=== PATIENT | male | born 1990 | race Caucasian/White ===

== ENCOUNTER 2016-06-26 00:13 | Emergency (ER) | payer BC, OTHER ==
[~2016-06-26] VITALS: Ht 167.6 cm; Wt 63.5 kg
[2016-06-26 00:20] VITALS: Ht 167.6 cm; Wt 63.5 kg
[2016-06-26] MEDS ORDERED: LIDOCAINE 2% (MDV) 20 ML INJ INJ ONE (03:00)
[2016-06-26] MEDS ORDERED: HYDR-906 PO (03:29)
[2016-06-26] MEDS ORDERED: IBUP-1542 PO (03:29)
--- NOTE | 2016-06-26 03:31 | ERD ---
ER Documentation Chief Complaint Date/Time DATE: 06/26/16 TIME: 03:30 Chief Complaint fell while skiing and has laceration on left side of forehead, no LOC ROS All systems reviewed and are negative except as per history of present illness. Medications Home Meds Active Scripts Ibuprofen* (Motrin*) 600 Mg Tab, 600 MG PO Q6, #30 TAB Prov:ORION PATTERSON 06/26/16 Hydrocodone/Acetaminophen ([place] 5-325 Tablet) 1 Each Tablet, 1 TAB PO Q6H Y for PAIN, #10 TAB Prov:ORION PATTERSON C 06/26/16 Allergies Allergies: Coded Allergies: No Known Allergy (Unverified , 06/26/16) PMhx/Soc Hx Substance Use: No Hx Tobacco Use: Yes Smoking Status: Light tobacco smoker Physical Exam Vitals Vital Signs Date Time Temp Pulse Resp B/P Pulse Ox O2 Delivery O2 Flow Rate FiO2 06/26/16 00:20 99.7 118 18 126/84 99 Physical Exam Const: [] Head: Atraumatic Eyes: Normal Conjunctiva ENT: Normal External Ears, Nose and Mouth. Neck: Full range of motion..~ No meningismus. Resp: Clear to auscultation bilaterally Cardio: Regular rate and rhythm, no murmurs Abd: Soft, non tender, non distended. Normal bowel sounds Skin: No petechiae or rashes Back: No midline or flank tenderness Ext: No cyanosis, or edema Neur: Awake and alert Psych: Normal Mood and Affect Results 24 hrs Current Medications Medications (Trade) Dose Ordered Sig/Erica Route PRN Reason Start Time Stop Time Status Last Admin Dose Admin Lidocaine (Xylocaine 2% (Mdv) 20 ml) 20 ml ONCE ONCE INJ 06/26/16 03:00 06/26/16 03:01 DC Procedures/MDM Laceration Repair by me: Anesthesia: 1% lidocaine locally Location: left eyebrow Tendon/Joint/Nerves: No injury Foreign body: None detected after copious irrigation and exploration Technique: 4 5'0 Simple Interrupted Sutures Complexity: No subcutaneous sutures/mucosal repair/ edge excision Post Closure Length: 3 cm Patient's bleeding was easily controlled in the department and there is no indication of anemia. No evidence of compartment syndrome, neurologic injury, vascular injury, open joint, tendon laceration, or foreign body. Patient is appropriate for outpatient follow up. 48 hour wound check. Scar minimization instructions given. Departure Diagnosis: Primary Impression: Laceration Condition: Stable Patient Instructions: Laceration, Face (Suture Or Tape) Additional Instructions: Return to this facility in 2 DAYS for a follow-up exam.Return sooner if your condition worsens. ORION PATTERSON Jun 26, 2016 03:31
[2016-06-26 03:38] VITALS: BP 134/72; PULSE 98; RESP 18; TEMP 98.9
== END 2016-06-26 03:38 | disposition home or self-care (01) ==
LOC: FTE 00:13
DX: S01.112A Laceration without foreign body of left eyelid and periocular area, initial encounter (principal); J45.909 Unspecified asthma, uncomplicated; F17.210 Nicotine dependence, cigarettes, uncomplicated; V00.321A Fall from snow-skis, initial encounter; Y92.9 Unspecified place or not applicable